=== PATIENT | male | born 1990 | race Caucasian/White ===

== ENCOUNTER 2019-11-22 13:59 | Emergency (ER) | payer OTHER ==
[~2019-11-22] VITALS: Ht 193 cm; Wt 72.6 kg
[2019-11-22 14:27] LABS: URINE BLOOD TRACE (Negative); URINE CLARITY CLEAR; URINE COLOR YELLOW; URINE GLUCOSE-RANDOM NEGATIVE (Negative); URINE KETONES TRACE (Negative); URINE LEUKOCYTES-REFLEX NEGATIVE (Negative); URINE NITRITE-REFLEX NEGATIVE (Negative); URINE PROTEIN NEGATIVE (Negative)
[2019-11-22 14:29] LABS: ICTOTEST (BILI CONFIRMATORY) Positive (Negative); URINE BILIRUBIN 1+ (Negative)
[2019-11-22 14:31] LABS: ABSOLUTE BASOPHILS 0.1 thou/uL (0.0-0.2); ABSOLUTE EOSINOPHILS 0.3 thou/uL (0.0-0.7); ABSOLUTE LYMPHOCYTES 3.2 thou/uL (0.8-5.3); ABSOLUTE MONOCYTES 0.5 thou/uL (0.0-1.2); ABSOLUTE NEUTROPHILS 5.2 thou/uL (1.6-8.1); HEMATOCRIT 46.8 % (42.0-52.0); HEMOGLOBIN 16.4 gm/dL (14.0-18.0); LYMPHOCYTES 34.4 %; MCH 30.8 pg (26.0-34.0); MCV 87.9 fL (80.0-100.0); MONOCYTES 5.7 %; NUCLEATED RBCS 0 /100WBC; PLATELET COUNT* 315 thou/uL (150-400); POLYS 55.9 %; RBC 5.33 mil/uL (4.50-6.00); RDW-CV 12.9 % (10.5-14.5); WBC 9.2 thou/uL (4.0-11.0)
[2019-11-22 14:34] LABS: CALCIUM 8.6 mg/dL (8.5-10.1); CREATININE 1.1 mg/dL (0.6-1.3); POTASSIUM 3.8 mmol/L (3.5-5.1)
[2019-11-22 15:30] LABS: DIRECT BILIRUBIN 0.2 mg/dL (<0.1-0.3); TOTAL BILIRUBIN 0.8 mg/dL (<0.1-1.0)
[2019-11-22 16:01] VITALS: BP 125/83
== END 2019-11-22 16:03 | disposition home or self-care (01) ==
LOC: M.ERS 13:59
PROVIDERS: Nurse Practitioner Family
DX: N50.3 Cyst of epididymis (principal); F17.210 Nicotine dependence, cigarettes, uncomplicated